=== PATIENT | male | born 1995 | race Two or more races ===

== ENCOUNTER 2020-04-12 13:18 | Emergency (ER) | payer OTHER ==
[~2020-04-12] VITALS: Ht 170.2 cm; Wt 68.0 kg
== END 2020-04-12 15:38 | disposition home or self-care (01) ==
LOC: ER 13:18 → CPU-OBS 14:17 → ER 14:17
DX: R07.89 Other chest pain (principal); Z03.818 Encounter for observation for suspected exposure to other biological agents ruled out
CPT/HCPCS: G0378; G0379; 93005